=== PATIENT | female | born 1940 ===

== ENCOUNTER → 2020-08-13 | Day surgery (SDC) | payer OTHER ==
[~2020-08-13] MED LIST: ALUPURINOL PO; CARDURA8 MG PO; CRESTOR10 MG PO; FORTAMET500 MG PO; GLUCOTROL10 MG PO; KEFLEX500 MG PO; MELOXICAM7.5 MG PO; NORVASC5 MG PO; TAMS0.4C PO; TOPROL XL25 M1 PO
== END | disposition home or self-care (01) ==
LOC: ADM 08-06 08:15 → CIR.AMB 07:00
PROVIDERS: ATTEND Surgery
DX: N20.0 Calculus of kidney (principal); Z20.828 Contact with and (suspected) exposure to other viral communicable diseases